=== PATIENT | female | born 1995 | race Caucasian/White ===

== ENCOUNTER 2017-12-26 16:12 | Emergency (ER) | payer SELFPAY ==
[~2017-12-26] VITALS: Ht 154.9 cm; Wt 55.9 kg
[~2017-12-26 16:12] MED LIST: BECL8.7A5 IH; LORA10TA7 PO
[2017-12-26] MEDS ORDERED: 0.9% SODIUM CHLORIDE 5 ML NEB SOLUTION NEB ONE (17:45)
[2017-12-26] MEDS ORDERED: MAALOX/LIDOCAINE/NYSTATIN SUSP 5 ML ORAL.SYG PO ONE (18:15)
[2017-12-26 19:34] VITALS: BP 139/74
== END 2017-12-26 19:34 | disposition home or self-care (01) ==
LOC: EMS 16:12
DX: J20.9 Acute bronchitis, unspecified (principal); J03.90 Acute tonsillitis, unspecified; Z88.8 Allergy status to other drugs, medicaments and biological substances
CPT/HCPCS: 99283